=== PATIENT | female | born 1995 | race Caucasian/White ===

== ENCOUNTER 2023-09-15 08:29 | Emergency (ER) | payer OTHER ==
[~2023-09-15] VITALS: Ht 165.1 cm; Wt 63.6 kg
[2023-09-15 08:33] VITALS: TEMP 98
[2023-09-15] MEDS ORDERED: LEVO100 PO (08:37)
[2023-09-15] MEDS ORDERED: TIZA-211 PO (09:24)
[2023-09-15 10:48] VITALS: BP 135/90; PULSE 78; RESP 18
== END 2023-09-15 10:52 | disposition home or self-care (01) ==
LOC: EMS 08:41
DX: G56.22 Lesion of ulnar nerve, left upper limb (principal); M25.512 Pain in left shoulder
CPT/HCPCS: 99283